=== PATIENT | female | born 1940 | race Hispanic/Latino ===

== ENCOUNTER 2017-03-30 20:10 | Emergency (ER) | payer OTHER ==
[~2017-03-30 20:10] MED LIST: B COMPLEX1 TAB PO; BONIVA150 MG; BONIVA150 MG PO; CARAFATE1 GM/10 ML PO; GOOD SENSE ASPI81 M1 PO; LEVOTHYROXIN0.075 M1 PO; LIORESAL 10MG T10 MG PO; MELOXICAM7.5 MG PO; PERCOCET 325 MG1 TA1 PO; PROTONIX 20MG T20 MG PO; RISPERIDONE0.25 MG PO; ROBITUSSIN W/CO10 ML PO; SIMVASTATIN20 MG PO; VITAMIN B COMPL1 CAP; ZOFRAN ODT4 MG PO; [UNRECOGNIZED DRUG - OTHER] PO
[2017-03-30 20:26] VITALS: BP 130/74
[2017-03-30] MEDS ORDERED: ZITHROMAX250 M2 PO (20:55)
--- NOTE | 2017-03-30 20:56 | ED EAR COMPLAINT ---
History of Present Illness General Chief Complaint: Ear Complaints Stated Complaint: EAR PAIN Source: patient, family, old records Exam Limitations: no limitations Vital Signs & Intake/Output Vital Signs & Intake/Output Vital Signs Date Time Temp Pulse Resp B/P B/P Pulse O2 O2 Flow FiO2 Mean Ox Delivery Rate 03/30 2026 99.0 66 20 130/74 97 ED Intake and Output 03/31 0000 03/30 1200 Intake Total 0 Output Total Balance 0 Intake, Oral 0 Patient 130 lb Weight Allergies Coded Allergies: MDX - PCN (penicillin) (PCN (PENICILLIN)) (Severe, UNSURE 08/05/15) Reconcile Medications Aspirin 81 MG TAB.CHEW 1 TAB PO DAILY ANTICOAGULATION (Reported) Azithromycin (Zithromax) 250 MG TABLET 1 DP PO AD EAR INFECTION 2 the first day followed by 1 for days 2-5 Ibandronate Sodium (Boniva) 150 MG TABLET 1 TAB PO Q30D OSTEOPOROSIS ( Reported) on the same date with a full glass of water at least 30 minutes before first food or drink of the day; remain in an upright posi Levothyroxine Sodium 75 MCG TABLET 1 TAB PO DAILY AC THYROID (Reported) Meloxicam 7.5 MG TABLET 1 TAB PO DAILY PAIN (Reported) Multivitamin and [id number] (B Complex) 1 TAB TAB 1 TAB PO DAILY VITAMIN ( Reported) Ondansetron (Zofran Odt) 4 MG ODT 1 TAB PO Q6H PRN NAUSEA Oxaprozin (Dapro 600MG) 600 MG TAB 1 TAB PO BID PAIN (Reported) Pantoprazole Sodium (Protonix) 20 MG TAB 1 TAB PO DAILY GI (Reported) Risperidone 0.25 MG TABLET 1 TAB PO AT BEDTIME SLEEP (Reported) Robitussin AC (Guaifenesin-Codeine Syrup) 10 ML UDC 2 TSP PO Q6H PRN COUGH MAY CAUSE DROWSINESS Simvastatin (Zocor) 20 MG TAB 1 TAB PO QPM CHOLESTEROL (Reported) Sucralfate (Carafate) 1 GM/10 ML SETH 10 ML PO Q6H PRN UPPER ABDOMINAL PAIN Triage Note: PER PT VIA INTREPTER L EAR PAIN SINCE THURSDAY NOW PER FAMILY DRAINING. Triage Nurses Notes Reviewed? yes HPI: Patient has been complaining of a left earache since Thursday. Decreased hearing in the left ear. The pain is throbbing in nature. There is no radiation. No aggravating or mitigating factors. She rates as 7 out of 10. Patient has no other complaints. Past History Travel History Traveled to [place] past 21 day No Medical History Any Pertinent Medical History? see below for history Neurological: NONE EENT: NONE Cardiovascular: hyperlipidemia, PACER Respiratory: NONE Gastrointestinal: GERD Hepatic: NONE Renal: NONE Musculoskeletal: osteoarthritis Psychiatric: anxiety Endocrine: hypopituitarism, NIDDM Surgical History Surgical History: cholecystectomy Psychosocial History Who do you live with Family Services at Home None What is your primary language Hungarian Tobacco Use: Never used ETOH Use: denies use Illicit Drug Use: denies illicit drug use Family History Hx Contributory? No Review of Systems Review of Systems Constitutional: Reports: no symptoms. EENTM: Reports: see HPI, ear pain. Respiratory: Reports: no symptoms. Cardiovascular: Reports: no symptoms. GI: Reports: no symptoms. Musculoskeletal: Reports: no symptoms. Neurological/Psychological: Reports: no symptoms. Immunologic/Allergic: Reports: no symptoms. Physical Exam Physical Exam General Appearance: well developed/nourished, alert, awake, anxious, mild distress Head: atraumatic Eyes: Bilateral: PERRL, EOMI. Ears: Left: Tympanic dull, Tympanic red, Tympanic bulging. Right: canal normal, Tympanic normal. Mouth/Throat: normal mouth inspection, pharynx normal Neck: normal inspection, supple, full range of motion, NO LAD Cardiovascular/Respiratory: normal breath sounds, normal peripheral pulses, regular rate/rhythm, no respiratory distress Neurologic/Psych: no motor/sensory deficits, awake, alert, oriented x 3, normal gait, normal mood/affect Progress Differential Diagnoses I considered the following diagnoses in my evaluation of the patient: [Otitis media, otitis externa] Plan of Care: Antibiotics Initial ED EKG: none Departure Departure Disposition: HOME OR SELF CARE Condition: Stable Clinical Impression Primary Impression: Left otitis media Referrals: UNKNOWN (PCP/Family) Additional Instructions: RETURN FOR ANY CONCERNS Departure Forms: Customer Survey General Discharge Information Prescriptions: Current Visit Scripts Azithromycin (Zithromax) 1 DP PO AD #6 TAB 2 the first day followed by 1 for days 2-5
== END 2017-03-30 21:03 ==
LOC: ERH 20:10
DX: H66.92 Otitis media, unspecified, left ear (principal)